=== PATIENT | female | born 1930 | race Caucasian/White ===

== ENCOUNTER 2016-11-13 04:11 | Inpatient (IN) | payer OTHER ==
[2016-11-07 09:18] LABS: MANUAL DIFF NEEDED? NO
[2016-11-07 09:22] LABS: URINE MICRO REVIEW NEEDED? NO; URINE SOURCE CLEAN CATCH
[2016-11-07 09:55] LABS: BILIRUBIN URINE NEGATIVE (NEGATIVE); BLOOD URINE NEGATIVE (NEGATIVE); COLOR YELLOW; GLUCOSE URINE NEGATIVE (NEGATIVE); LEUKOCYTES URINE TRACE (NEGATIVE); NITRITE URINE NEGATIVE (NEGATIVE); PROTEIN URINE NEGATIVE (NEGATIVE); SP GRAVITY URINE 1.018; TURBIDITY URINE CLEAR (CLEAR); UROBILINOGEN URINE NORMAL (NORMAL)
[2016-11-07 09:57] LABS: BASO% 0.6 % (0.0-0.8); EOS# 0.32 X1000 (0.0-0.7); HEMATOCRIT 39.4 % (37.0-47.0); HEMOGLOBIN 12.9 g/dL (12.0-16.0); LYMPH# 2.05 X1000 (1.2-3.4); LYMPH% 25.8 % (20.5-51.1); MCH 31.4 PG (27-31); MCHC 32.7 g/dL (33-37); MCV 95.9 FL (81-99); MONO# 0.77 X1000 (0.11-0.59); MONO% 9.7 % (1.7-9.3); MPV 11.4 FL (7.4-10.4); NEUT% 59.9 % (42.2-75.2); PLT 187 X1000 (130-400); RBC 4.11 XMIL (4.2-5.4); UR EPITHELIAL CELLS <10 /HPF (<10); URINE BACTERIA NEGATIVE /HPF; URINE RBC <10 /HPF (<10); URINE WBC <10 /HPF (<10)
[2016-11-07 10:05] LABS: INR 0.97; PROTIME 10.3 Seconds (9.2-11.7); PTT 25.2 Seconds (22.0-36.0)
[2016-11-07 10:16] LABS: AGAP 11; BUN 21 mg/dL (8-22); CALCIUM 9.5 mg/dL (8.8-10.2); CHLORIDE 95 mmol/L (98-107); COSMO 275; POTASSIUM 4.6 mmol/L (3.5-5.1); SODIUM 136 mmol/L (136-145); TCO2 30 mmol/L (25-35)
--- NOTE | 2016-11-07 11:56 | EKG Report ---
Test Performed on : 11/07/2016 09:08:59 AM Test Reason : PAT Blood Pressure : / mmHG Vent. Rate : 070 BPM Atrial Rate : 070 BPM P-R Int : 184 ms QRS Dur : 076 ms QT Int : 380 ms P-R-T Axes : 039 024 040 degrees QTc Int : 410 ms Normal sinus rhythm. with sinus arrhythmia. Possible Left atrial enlargement Borderline ECG When compared with ECG of 23-JUL-2015 21:30, No significant change was found Confirmed by Benjy LASSITER, Damion Wood ([id number]) on 11/08/2016 5:22:24 PM
[2016-11-13] MEDS ORDERED: COLACE ONE (06:06)
[2016-11-13] MEDS ORDERED: LYRICA ONE (06:07)
[2016-11-13] MEDS ORDERED: REGLAN ONE (06:07)
[2016-11-13] MEDS ORDERED: LR 1,000 ML ONE (06:07)
[2016-11-13] MEDS ORDERED: CELEBREX ONE (06:07)
[2016-11-13] MEDS ORDERED: PEPCID ONE (06:07)
[2016-11-13] MEDS ORDERED: KEFZOL 1 GM/D5W 50 ML ONE (06:08)
[2016-11-13] MEDS ORDERED: TORADOL ONE (07:25)
[2016-11-13] MEDS ORDERED: DURAMORPH ONE (07:25)
[2016-11-13] MEDS ORDERED: SODIUM CHLORIDE 0.9% ONE (07:25)
[2016-11-13] MEDS ORDERED: MARCAINE 0.25% PF/EPI 1:200,000 ONE (07:25)
[2016-11-13] MEDS ORDERED: CLAVE SECONDARY SET 11953 ONE (07:26)
[2016-11-13] MEDS ORDERED: NEOSPORIN G.U. IRRIGANT ONE (07:26)
[2016-11-13] MEDS ORDERED: CYKLOKAPRON 1,000 MG/NS 100 ML ONE (07:26)
[2016-11-13] MEDS ORDERED: EXPAREL 1.3% ONE (07:26)
--- NOTE | 2016-11-13 07:43 | HISTORY AND PHYSICAL ---
CHIEF COMPLAINT: Left shoulder pain. HISTORY OF PRESENT ILLNESS: Ms. Rai is an 86-year-old, white female with a history of left shoulder pain. She states that her shoulder has caused her pain for several years, but has progressively gotten worse over the last year. Despite conservative therapy, she is still having pain. We will be admitting her today for a left total shoulder arthroplasty. PAST MEDICAL HISTORY: 1. Pulmonary fibrosis. 2. Home oxygen at night. 3. Coronary artery disease. 4. DVT. 5. Hyperlipidemia. 6. Chronic kidney disease. 7. Degenerative joint disease. 8. Acid reflux. SURGICAL HISTORY: 1. Bilateral cataract surgery. 2. Appendectomy. 3. Lumbar surgery. 4. Hysterectomy. 5. Right ear surgery. 6. Kyphoplasty. 7. Right total knee arthroplasty. FAMILY HISTORY: Noncontributory. SOCIAL HISTORY: She is . She denies using tobacco. She denies using alcohol. CURRENT MEDICATIONS: Her home medications are Celebrex 200 mg daily, aspirin 81 mg at bedtime. Magnesium glycinate 120 mg p.o. t.i.d., multivitamin 1 p.o. b.i.d., ascorbic acid 1000 mg tablet 3 p.o. daily. Pravastatin 40 mg p.o. at bedtime, cholecalciferol 5000 units p.o. as directed. ALLERGIES: To Demerol. PRIMARY CARE PROVIDER: Dr. Kirk Connell. REVIEW OF SYSTEMS: HEENT: Patient reports having contact in the right eye. Denies any other HEENT problems. Cardiac: Patient denies any current cardiac problems. She has a history of coronary artery disease. Pulmonary: The patient reports having chronic cough and occasional wheezing, using oxygen at night. Gastrointestinal: The patient denies any gastrointestinal problems. Denies any nausea, vomiting, diarrhea. Genitourinary: Patient denies any problems, any frequent urinary tract infections or any genitourinary problems. Neurological: Patient denies any neurological deficits or dysesthesias. Musculoskeletal: Patient reports left shoulder pain and also knee and back pain. PHYSICAL EXAMINATION: GENERAL: The patient is awake, sitting up in bed. She is articulate and able to answer questions appropriately. Family is at bedside. HEENT: Head is normocephalic, atraumatic. Pupils equal, round, reactive to light. Nares patent. Throat without exudate. CARDIAC: S1-S2 auscultated. No murmur, rub or gallop noted. LUNGS: Clear to auscultation bilaterally in all lung david. GASTROINTESTINAL: Abdomen is soft, nontender, nondistended. Bowel sounds present in all quadrants. GENITOURINARY: Not examined. NEUROLOGICAL: Patient has good sensation to dull touch in all extremities. Cranial nerves 2-12 grossly intact. MUSCULOSKELETAL: Physical examination of the left shoulder reveals pain with palpation of the shoulder, as well as passive range of motion. IMPRESSION: 1. Osteoarthritis of the left shoulder. 2. Complete rotator cuff tear of the left shoulder. PLAN OF CARE: Left reverse total shoulder arthroplasty. The risks, benefits, and alternatives of surgery were discussed with the patient including risk of anesthesia, bleeding, damage to blood vessels, nerves, tendons, ligaments, and other imponderables were discussed, and the patient agrees to proceed with the surgery at this time. Dictated by HEATHER Martinez for Austen Harrison MD
[2016-11-13 08:39] LABS: URINE MICRO REVIEW NEEDED? NO; URINE SOURCE CATH
[2016-11-13 08:44] LABS: BILIRUBIN URINE NEGATIVE (NEGATIVE); BLOOD URINE NEGATIVE (NEGATIVE); COLOR STRAW; GLUCOSE URINE NEGATIVE (NEGATIVE); LEUKOCYTES URINE MODERATE (NEGATIVE); NITRITE URINE NEGATIVE (NEGATIVE); PROTEIN URINE NEGATIVE (NEGATIVE); SP GRAVITY URINE 1.003; TURBIDITY URINE CLEAR (CLEAR); UROBILINOGEN URINE NORMAL (NORMAL)
[2016-11-13 08:47] LABS: UR EPITHELIAL CELLS <10 /HPF (<10); URINE BACTERIA NEGATIVE /HPF; URINE RBC <10 /HPF (<10); URINE WBC <10 /HPF (<10)
[2016-11-13] MEDS ORDERED: NS 1,000 ML ONE (09:57)
[2016-11-13] MEDS ORDERED: DIPRIVAN 1% ONE (10:02)
[2016-11-13] MEDS ORDERED: FENTANYL ONE (10:02)
--- NOTE | 2016-11-13 10:27 | OPERATIVE NOTE ---
PROCEDURE DATE: 11/13/2016 PREOPERATIVE DIAGNOSIS: Degenerative arthritis, left glenohumeral joint. POSTOPERATIVE DIAGNOSIS: Degenerative arthritis, left glenohumeral joint. PROCEDURE PERFORMED: Left reverse total shoulder arthroplasty with DePuy Delta Xtend size 12 press-fit stem with a 42, +6 humeral cup, 42 eccentric Glenosphere, and a standard metaglene. SURGEON: Austen Harrison MD UNCRATER: HEATHER Martinez ANESTHESIA: General. IV FLUIDS: 2000 mL of lactated Ringer's. ESTIMATED BLOOD LOSS: 150 mL. COMPLICATIONS: None. INDICATIONS: The patient is a pleasant 86-year-old female with a chronic history of worsening pain and discomfort of the left shoulder. The pain has progressed to effect her activities of daily living. X-rays revealed degenerative arthritis. The recommendation to proceed with left reverse total shoulder arthroplasty was offered. Risks and benefits of surgery were explained, including risks of anesthesia, , bleeding, infection, failure to relieve pain, postoperative stiffness, nerve injury, blood clots, and other imponderables. All questions were answered and the patient and family wished to proceed with surgery. DETAILS OF OPERATION: The patient was taken to the operating room and placed supine on the operating table. Once adequate anesthesia was obtained, the patient was placed in semi-Beyer beach-chair position. The left shoulder was subsequently prepped and draped in usual sterile fashion. Placed 12 pounds lock was our and prepped and draped in the usual sterile fashion. A standard deltopectoral incision was made with a skin knife. Hemostasis was obtained using electrocautery. The deltopectoral interval was then developed. The cephalic vein was retracted laterally. incision comes RA I deltopectoral interval was then developed. The cephalic vein was retracted laterally. The clavipectoral along with the conjoined tendon was elevated and deep Velasco retractors were placed. Stay sutures were placed in the subscapularis and approximately a centimeter medial to its cm medial to its insertion. The subscapularis was incised and released and retracted medially. Attention was then turned to the proximal humerus, where a starting reamer was passed into the humeral head and into the intramedullary canal. Sequential reaming was conducted up to size 12. A guide was then placed in position and the humeral head was resected using the guide. After this had been performed, a protective disc was then placed. Attention was then turned to the glenoid. Circumferential dissection was then performed with a deep knife. Using a guide, a guide pin was then placed into position. Reaming was then conducted and the central hole was then dilated and the pin was removed. Copious irrigation was then performed with antibiotic pulsatile lavage. A standard metaglene was then impacted in position. Two locking screws were placed and 1 nonlocking screw. It appeared to have good fixation. The wound was copiously irrigated once again. A 42 eccentric Glenosphere with the eccentricity placed inferiorly was then placed and had good purchase. Attention was then turned to the proximal humerus, where the intramedullary guide was then placed in position. The proximal humerus was reamed. A size 12 press-fit stem was then impacted in position and had good fit. Trial cups were then placed and a 42, +6 had excellent stability and range of motion. The trial cup was then removed. Copious irrigation was then performed once again with antibiotic pulsatile lavage. A 42, +6 humeral cup was then impacted in position. The shoulder was then reduced, carried through range of motion, and had excellent stability and range of motion. Exparel was placed in the deep soft tissue, as well as subcutaneous tissue. A #2 FiberWire was then used to repair the subscapularis tendon in interrupted fashion. The wound was copiously irrigated once again with antibiotic pulsatile lavage. A 2-0 Vicryl was then used in the subcutaneous tissue, followed by running 2-0 Prolene. Benzoin and Steri-Strips were applied. Adaptic, sterile 4 x 4's, ABD pad, and tape were applied to the left shoulder, followed by tape, followed by a shoulder immobilizer. She tolerated the procedure well with no complications and was transferred to the recovery room in stable condition.
[2016-11-13] MEDS ORDERED: SODIUM CHLORIDE 0.9% 10 ML ONE (10:47)
[2016-11-13] MEDS ORDERED: STERILE WATER INJ. ONE (10:47)
[2016-11-13] MEDS ORDERED: ZOFRAN ONE (10:47)
[2016-11-13] MEDS ORDERED: NEO-SYNEPHRINE ONE (10:47)
[2016-11-13] MEDS ORDERED: OFIRMEV 1000 MG/ISOTONIC SOLN 100 ML ONE (10:48)
[2016-11-13] MEDS ORDERED: EPHEDRINE ONE (10:48)
[2016-11-13] MEDS ORDERED: DECADRON ONE (10:48)
[2016-11-13] MEDS ORDERED: ROBINUL ONE (10:48)
[2016-11-13] MEDS ORDERED: XYLOCAINE-MPF 2% ONE (10:48)
[2016-11-13] MEDS ORDERED: QUELICIN (DOSE) ONE (10:48)
[2016-11-13] MEDS ORDERED: LR 2,000 ML ONE (10:48)
--- NOTE | 2016-11-13 11:17 | Diag Imaging Result Document ---
PROCEDURE NAME: SHOULDER 1 VIEW RIGHT - 11/13/2016 SINGLE FRONTAL RADIOGRAPH OF THE LEFT SHOULDER: COMPARISON: None available. FINDINGS: There has been a recent left shoulder arthroplasty. The arthroplasty hardware is in the expected position. There is no evidence of periprosthetic fracture. There is a small amount of postsurgical gas in the surrounding soft tissues. IMPRESSION: Satisfactory postoperative left shoulder.
[2016-11-13] MEDS: THERA M PLUS PO SCH ×2 (11:20→20:22)
[2016-11-13] MEDS: PATIENT'S OWN MED PO SCH ×3 (11:20→18:30)
[2016-11-13] MEDS ORDERED: OXY IR PO PRN (12:00)
[2016-11-13] MEDS ORDERED: MILK OF MAGNESIA PO PRN (12:00)
[2016-11-13] MEDS ORDERED: ZOFRAN PO PRN (12:00)
[2016-11-13] MEDS ORDERED: MORPHINE IV PRN (12:03)
[2016-11-13] MEDS: NS 1,000 ML IV SCH ×2 (12:52→23:29)
[2016-11-13] MEDS: PERIDEX MT SCH ×2 (12:59→20:21)
[2016-11-13] MEDS ORDERED: CYKLOKAPRON 1,000 MG in NS 100 ML IV ONE (13:55)
[2016-11-13] MEDS: TYLENOL PO SCH ×3 (15:20→22:47)
[2016-11-13] MEDS: KEFZOL 1 GM/D5W 50 ML IV SCH ×2 (15:20→23:29)
[2016-11-13] MEDS ORDERED: PRAVACHOL PO SCH (21:00)
[2016-11-13] MEDS ORDERED: ASPIRIN EC PO SCH (21:00)
[2016-11-13] MEDS: COLACE PO SCH (22:47)
[2016-11-14] MEDS: TYLENOL PO SCH ×2 (03:30→10:14)
[2016-11-14 06:20] LABS: HEMOGLOBIN 9.6 g/dL (12.0-16.0)
[2016-11-14 06:30] LABS: AGAP 11; BUN 15 mg/dL (8-22); CALCIUM 8.2 mg/dL (8.8-10.2); CHLORIDE 96 mmol/L (98-107); COSMO 266; POTASSIUM 4.3 mmol/L (3.5-5.1); SODIUM 132 mmol/L (136-145); TCO2 25 mmol/L (25-35)
--- NOTE | 2016-11-14 08:03 | PROGRESS NOTE ---
DATE: 11/14/2016 SUBJECTIVE: The patient is a pleasant, 86-year-old female who is 1 day status post left reverse total shoulder arthroplasty. The patient is currently resting comfortably and has no interval complaints. PHYSICAL EXAMINATION: The patient is able to flex all of her fingers. Good adult care manager strength. Dressing is intact. LABORATORY DATA: Her hemoglobin is 9.6 and hematocrit is 29. IMPRESSION: 1. Postoperative day #1, status post left reverse total shoulder arthroplasty. 2. Acute blood loss anemia, asymptomatic. PLAN: At this point, we will change her dressing. We will discontinue her Torres and Hep-Lock her IV. We will plan on discharging home after physical therapy. Patient will receive home physical therapy. The patient will continue with her multivitamins with iron.
[2016-11-14] MEDS: PATIENT'S OWN MED PO SCH (08:11)
[2016-11-14] MEDS: THERA M PLUS PO SCH (08:13)
[2016-11-14] MEDS: PERIDEX MT SCH (08:14)
[2016-11-14] MEDS: COLACE PO SCH (08:15)
[2016-11-14] MEDS ORDERED: PEPCID PO SCH (09:00)
[2016-11-14] MEDS ORDERED: CELEBREX PO SCH (09:00)
[2016-11-14] MEDS ORDERED: DECADRON IV ONE (09:00)
[2016-11-14] MEDS ORDERED: BLISTEX MEDICATED BERRY LIP BALM TOP PRN (10:15)
[2016-11-14 11:43] VITALS: BP 136/63
== END 2016-11-14 13:23 | disposition home health service (06) | DRG 483 ==
LOC: SURHOLD 04:11 → 4N 08:52
PROVIDERS: ADMIT Orthopaedic Surgery Adult Reconstructive Orthopaedic Surgery; ATTEND Orthopaedic Surgery Adult Reconstructive Orthopaedic Surgery
PROC: 0RRK00Z Replacement of Left Shoulder Joint with Reverse Ball and Socket Synthetic Substitute, Open Approach (ICD-10-PCS; principal; 2016-11-13 07:31)
DX: M19.012 Primary osteoarthritis, left shoulder (principal); J84.10 Pulmonary fibrosis, unspecified; Z99.81 Dependence on supplemental oxygen; D62 Acute posthemorrhagic anemia; M75.122 Complete rotator cuff tear or rupture of left shoulder, not specified as traumatic; Z96.651 Presence of right artificial knee joint; I25.10 Atherosclerotic heart disease of native coronary artery without angina pectoris; Z86.718 Personal history of other venous thrombosis and embolism; E78.5 Hyperlipidemia, unspecified; N18.9 Chronic kidney disease, unspecified; Z79.1 Long term (current) use of non-steroidal anti-inflammatories (NSAID); Z79.82 Long term (current) use of aspirin; Z79.899 Other long term (current) drug therapy
CPT/HCPCS: 80048; 81001; 85014; 85018; 85025; 85610; 85730; 86850; 86900; 86901; 88305; 88311; 93005; 93010; 94761; 94799; C9290; J0131; J0330; J0690; J1100; J1885; J2274; J2370; J2405; J3010; J7030; J7120; 97110-GP; S0020